=== PATIENT | female | born 1985 | race Caucasian/White ===

== ENCOUNTER 2023-01-09 18:12 | Emergency (ER) | payer OTHER, SELFPAY ==
[2023-01-09] VITALS (15 sets, daily range): BP systolic 121–139; BP diastolic 63–83; PULSE 78–92; RESP 11–26; TEMP 36.6; O2SAT 98–100
--- NOTE | 2023-01-09 18:15 | DI.RAD_ITS ---
Exam(s) XR FOREARM LT EXAM: XR FOREARM LT CLINICAL HISTORY: pain s/p fall. TECHNIQUE: 2D digital imaging was performed. COMPARISON: No exams were available for comparison FINDINGS: Two views Severely comminuted fracture of distal radius involvement of the radiocarpal joint. Dorsal displacem ent and dorsal angulation. Soft tissue swelling around the wrist. No obvious fracture of the ulna nor of the radius more proximally. IMPRESSION: Severely comminuted fracture of the distal radius. DATA REPOSITORY: RADIATION DOSE DELIVERED:
--- NOTE | 2023-01-09 18:15 | DI.RAD_ITS ---
Exam(s) XR WRIST LT COMPLETE EXAM: XR WRIST LT COMPLETE CLINICAL HISTORY: pain s/p fall. TECHNIQUE: 2D digital imaging was performed. COMPARISON: No exams were available for comparison FINDINGS: 3 views There is a severely comminuted and displaced fracture distal radius involves the radiocarpal joint. Also dorsal angulation. There is no obvious fracture of the ulna. No obvious scaphoid fracture. On the lateral view there is a small osteophytic density seen dorsally which may be an avulsion injur y off the triquetrum. IMPRESSION: Severely comminuted dorsally angulated fracture of distal radius. Also possible fracture of the triq uetrum. DATA REPOSITORY: RADIATION DOSE DELIVERED:
--- NOTE | 2023-01-09 18:28 | W.ED.GENAD ---
Discharge Plan Disposition Patient Disposition: Home Condition: Stable Discharge Details Clinical Impression: Fracture of left wrist Primary Care Provider: Anne,Local ED Provider: Leandra Boles Home Meds and New Rx's Prescriptions: New oxycodone 5 mg tablet 5 mg PO Q6H PRN (Reason: pain) Qty: 10 0RF Discharge Instructions Instructions: Wrist Fracture in Adults (ED), Closed Reduction (ED) Additional Instructions: Your wrist fracture was reduced by our orthopedist Dr. Vaughn in the emergency department. Call your local orthopedist in [place] tomorrow to schedule a follow-up appointment for reevaluation this week when you return to [place]. It has been recommended by Dr. Vaughn that you will likely require surgery of your left wrist fracture within the next 2 weeks. Rest, ice, and elevate the affected area as much as possible. Keep the sling on at all times. You may remove the sling to shower. Alternate tylenol and motrin as needed and directed for pain. A prescription for oxycodone has been sent electronically to the [facility] pharmacy. Take the oxycodone for pain not relieved with Tylenol or Motrin. Return immediately to the emergency department if you develop any worsening or new concerning symptoms. Referrals: Pantera Vaughn MD [ [facility] STAFF PHYSICIAN] - Discharge Data Discharge Date/Time-TO BE ENTERED AT DEPARTURE: 01/09/23 21:52 Discharge Physician: Leandra Boles Medical Decision Making <Gee Cooper MD - Last Filed: 01/09/23 19:37> 37 yo female with no chronic medical problems comes in with left wrist pain. She states about an hour ago she was walking when she slipped on ice falling on her left outstretch hand, she denies hitting her head or loc. She has a deformed left wrist, intact sensation and pulses. No tenderness in the shoulder, humerus or elbow. CAox4 without trauma to the head and no midline c spine pain. Likely fracture/dislocation of the left wirst, will obtain xrays xrays confirm wrist fx/dislocation. Consulted with Dr. Vaughn who will come in to assist with reduction. Pt consents to having reduction on procedural sedation Differential Diagnosis Differential Diagnosis: fracture, dislocation Imaging Data Radiologic Study: Attestation: I personally reviewed and interpreted this imaging study as follows: Imaging: X-Ray My impression: fracture on wrist xray Radiologic Study #2: Attestation: I personally reviewed and interpreted this imaging study as follows: Imaging: X-Ray My impression: wrist fracture on forearm xray <Leandra Boles, DO - Last Filed: 01/11/23 00:57> Dr. Cooper 37 yo female with no chronic medical problems comes in with left wrist pain. She states about an hour ago she was walking when she slipped on ice falling on her left outstretch hand, she denies hitting her head or loc. She has a deformed left wrist, intact sensation and pulses. No tenderness in the shoulder, humerus or elbow. CAox4 without trauma to the head and no midline c spine pain. Likely fracture/dislocation of the left wirst, will obtain xrays xrays confirm wrist fx/dislocation. Consulted with Dr. Vaughn who will come in to assist with reduction. Pt consents to having reduction on procedural sedation. Dr. Boles 1999 -- Please see Dr. Cooper's note for initial presentation, exam, and plan. Case endorsed to plan for conscious sedation and bedside closed reduction with Dr. Vaughn. Patient is a 37-year-old yqlq-exhi-voqfimas female diagnosed with left wrist fracture with deformity after mechanical fall onto left hand today. She denies any other injuries. She is visiting from [place] and returning Tuesday. She has a positive deformity to the left wrist but is otherwise neurovascularly intact. Conscious sedation performed at bedside by me and closed reduction performed by Dr. Vauhgn. Not able to achieve full sedation but pt otherwise tolerated this procedure well and was successfully reduced and splint applied. X-ray confirms significant improvement in bony alignment. She was given an xray disc to go. She was given oxycodone to go and a prescription sent electronically to [facility] pharmacy. Patient's sister is our field service tech Scott. Dr. Vaughn recommended she have surgery to improve the left wrist fracture within the next 2 weeks. She is advised to follow-up with orthopedics in [place] this week. Usual and customary return precautions given prior to discharge. Medical Records Medical records reviewed: Yes I reviewed the patient's medical records. Imaging Data Radiologic Study: Radiologist's impression: XR Left Wrist Exam date and time: 01/09/2023 7:10 PM Age: 37 years old Clinical indication: Injury or trauma; Other: Pain S/P fall; Injury date: 01/09/23 TECHNIQUE: Imaging protocol: Radiologic exam of the left wrist. Views: 3 or more views. COMPARISON: No relevant prior studies available. FINDINGS: Bones/joints: There is severely comminuted fracture of the distal radius with of large intraarticular component. There is displacement of the distal fracture fragments approximately 1/2 bone width dorsally. There is a possible fracture seen within the carpus at the dorsal aspect versus confluency of the silhouettes of the carpal bones. Consider follow-up films and/or CT for confirmation. Consider follow-up films and/or CT for confirmation. The proximal shaft of the radius is intact. The left ulna is intact. Soft tissues: There is deformation and soft tissue swelling at the left wrist. IMPRESSION: 1. ? There is severely comminuted fracture of the distal radius with of large intraarticular component. There is displacement of the distal fracture fragments approximately 1/2 bone width dorsally. 2. ? There is deformation and soft tissue swelling at the left wrist. 3. ? There is a possible fracture seen within the carpus at the dorsal aspect versus confluency of the silhouettes of the carpal bones. Consider follow-up films and/or CT for confirmation. XR Left Forearm Exam date and time: 01/09/2023 7:11 PM Age: 37 years old Clinical indication: Injury or trauma; Other: Pain S/P fall; Injury date: 01/09/23 TECHNIQUE: Imaging protocol: Radiologic exam of the left forearm. Views: 2 views. COMPARISON: CR XR WRIST LT COMPLETE 01/09/2023 7:10 PM FINDINGS: Bones/joints: There is severely comminuted fracture of the distal radius with of large inter articular component. There is displacement of the distal fracture fragments approximately 1/2 bone width dorsally. The proximal shaft of the radius is intact. The left ulna is intact. Soft tissues: There is deformation and soft tissue swelling at the left wrist. IMPRESSION: 1. ? There is severely comminuted fracture of the distal radius with of large inter articular component. There is displacement of the distal fracture fragments approximately 1/2 bone width dorsally. 2. ? There is deformation and soft tissue swelling at the left wrist. Radiologic Study #2: Radiologist's impression: XR Left Wrist - POST REDUCTION Exam date and time: 01/09/2023 8:30 PM Age: 37 years old Clinical indication: Other: Post reduction TECHNIQUE: Imaging protocol: Radiologic exam of the left wrist. Views: 3 or more views. COMPARISON: CR XR WRIST LT COMPLETE 01/09/2023 7:10 PM FINDINGS: Tubes, catheters and devices: External fiberglass splint limits bony and soft-tissue detail. Bones/joints: There has been closed reduction of the left radial fracture. The osseous structures show remarkable improvement in alignment and position when compared with the pre reduction films. Ulnar styloid fracture is now apparent. Soft tissues: There is soft tissue swelling present. IMPRESSION: 1. ? There has been closed reduction of the left radial fracture. The osseous structures show remarkable improvement in alignment and position when compared with the pre reduction films. 2. ? Ulnar styloid fracture is now apparent. 3. ? There is soft tissue swelling present. HPI <Gee Cooper MD - Last Filed: 01/09/23 19:37> General Mode of arrival: ambulatory. Date/Time Provider Initiated Documentation: 01/09/23 18:13. Limitations to Documentation: no limitations. Information obtained by: patient. History of Present Illness 37 year old F presents to the emergency department with the chief complaint of left wrist pain, described as moderate, Patient started experiencing this hour(s) (1) and it has been constant. No relieving factors improve symptom(s), No exacerbating factors reported . Patient notes no other symptoms.. Patient did receive the following treatments prior to arrival, none Related Data Home Medications Medication Instructions Recorded Confirmed oxycodone 5 mg tablet 5 mg PO Q6H PRN pain #10 tabs 01/09/23 Previous Rx's Medication Instructions Recorded oxycodone 5 mg tablet 5 mg PO Q6H PRN pain #10 tabs 01/09/23 Allergies Allergy/AdvReac Type Severity Reaction Status Date / Time Penicillins Allergy Skin Rash Unverified 01/09/23 18:23 General Stated Complaint: Orthopedic NIEVES: 4 Review of Systems <Gee Cooper MD - Last Filed: 01/09/23 19:37> All systems reviewed & are unremarkable except as noted in HPI and below Constitutional Constitutional: Denies chills, Denies fever(s) and Denies weakness Cardiovascular Cardiovascular: Denies chest pain and Denies dyspnea Respiratory Respiratory: Denies cough and Denies dyspnea Gastrointestinal Gastrointestinal: Denies abdominal pain, Denies nausea and Denies vomiting Musculoskeletal Musculoskeletal: Denies joint swelling Integumentary/Breasts Skin/Breast: Denies rash Neurologic Neurologic: Denies weakness Psychiatric Psychiatric: Denies depression PFSH <Gee Cooper MD - Last Filed: 01/09/23 19:37> All Active Problems Fracture of left wrist (Acute) Medical History No significant past medical history Surgical History H/O wisdom tooth extraction Social History Smoking/Tobacco Use Status: Never Smoking risk assessment performed?: Yes Alcohol Intake: current Alcohol Intake frequency: holidays/special occasions only Drug use: Never Exam <Gee Cooper MD - Last Filed: 01/09/23 19:37> Const Orientation: alert and awake HENMT Head: normal to inspection Ears: external ears normal and TM's normal bilaterally General nose exam: external nose normal Mouth: oral mucosae normal Eyes General: appearance normal, both eyes and all related structures Neck Neck: normal visual inspection Resp Effort & Inspection: normal respiratory effort Cardio Rate: regular rate GI Palpation: soft and nontender Skin General skin exam: no rashes or lesions noted Neuro General: patient alert and patient awake Extrem General: capillary refill normal Course <Gee Cooper MD - Last Filed: 01/09/23 19:37> Vital Signs Vital signs: Vital Signs Temperature 36.6 C 01/09/23 18:18 Pulse 78 01/09/23 18:18 Respiratory Rate 16 01/09/23 18:18 Blood Pressure 134/83 01/09/23 18:18 Pulse Oximetry 100 01/09/23 18:18 Temperature 36.6 C 01/09/23 18:18 Temperature Source Tympanic 01/09/23 18:18 Pulse 78 01/09/23 18:18 Respiratory Rate 16 01/09/23 18:18 Blood Pressure 134/83 01/09/23 18:18 Blood Pressure Position Sitting 01/09/23 18:18 Pulse Oximetry 100 01/09/23 18:18 Oxygen Delivery Method Room Air 01/09/23 18:18 Oxygen Flow Rate 0 01/09/23 18:18 Pain Level 8 01/09/23 18:18 <Leandra Boles DO - Last Filed: 01/11/23 00:57> Procedural Sedation Indication: fracture/dislocation reduction Preparation: ekg monitor tech applied, pulse oximeter, capnometry used, supplemental O2 applied, reversal agents at bedside, suction/airway equipment at bedside and IV secured IV Propofol dose (mg): 180 Patient Tolerated Procedure: well Complications: none Additional Comments: A total of 200 mg of propofol ordered and prepared at bedside prior to procedure. Patient was given a total of 180 mg of propofol during procedure. 20 mg of the 200 mg total were inadvertently spilled during the procedure. Unable to achieve full sedation but pt otherwise tolerated procedure well and reduction successful and splint applied. Sign Out <Gee Cooper MD - Last Filed: 01/09/23 19:37> Sign Out Data: Sign Out Comment: slipped on ice, left wrist fx/dislocation. Dr. Vaughn consulted and plans to reduce under procedural sedation Last updated by Gee Cooper MD at 01/09/23 19:43
[2023-01-09] MEDS: Ketorolac 15 MG/ML VIAL IVP (18:52)
--- NOTE | 2023-01-09 19:15 | DI.RAD_ITS ---
Exam(s) XR FLOURO OR C-ARM <1 HR EXAM: XR FLOURO OR C-ARM <1 HR CLINICAL HISTORY: fracture. TECHNIQUE: 2D digital imaging was performed. COMPARISON: No exams were available for comparison FINDINGS: Fluoroscopy was provided during close reduction of distal radius fracture. Submitted images significant improvement alignment of fracture fragments. Total fluoroscopy time was 18 seconds. IMPRESSION: Radiation exposure index/cumulative dose: Ka,r= 0.0986mGy DATA REPOSITORY: RADIATION DOSE DELIVERED:
--- NOTE | 2023-01-09 19:44 | DI.VRAD_ITS ---
PROCEDURE INFORMATION: Exam: XR Left Forearm Exam date and time: 01/09/2023 7:11 PM Age: 37 years old Clinical indication: Injury or trauma; Other: Pain S/P fall; Injury date: 01/09/23 TECHNIQUE: Imaging protocol: Radiologic exam of the left forearm. Views: 2 views. COMPARISON: CR XR WRIST LT COMPLETE 01/09/2023 7:10 PM FINDINGS: Bones/joints: There is severely comminuted fracture of the distal radius with of large inter articular component. There is displacement of the distal fracture fragments approximately 1/2 bone width dorsally. The proximal shaft of the radius is intact. The left ulna is intact. Soft tissues: There is deformation and soft tissue swelling at the left wrist. IMPRESSION: 1. There is severely comminuted fracture of the distal radius with of large inter articular component. There is displacement of the distal fracture fragments approximately 1/2 bone width dorsally. 2. There is deformation and soft tissue swelling at the left wrist. Dictated and Authenticated by: Lucho Flores MD. Ordering:PATRICK Flynn MD
--- NOTE | 2023-01-09 19:48 | DI.VRAD_ITS ---
PROCEDURE INFORMATION: Exam: XR Left Wrist Exam date and time: 01/09/2023 7:10 PM Age: 37 years old Clinical indication: Injury or trauma; Other: Pain S/P fall; Injury date: 01/09/23 TECHNIQUE: Imaging protocol: Radiologic exam of the left wrist. Views: 3 or more views. COMPARISON: No relevant prior studies available. FINDINGS: Bones/joints: There is severely comminuted fracture of the distal radius with of large intraarticular component. There is displacement of the distal fracture fragments approximately 1/2 bone width dorsally. There is a possible fracture seen within the carpus at the dorsal aspect versus confluency of the silhouettes of the carpal bones. Consider follow-up films and/or CT for confirmation. Consider follow-up films and/or CT for confirmation. The proximal shaft of the radius is intact. The left ulna is intact. Soft tissues: There is deformation and soft tissue swelling at the left wrist. IMPRESSION: 1. There is severely comminuted fracture of the distal radius with of large intraarticular component. There is displacement of the distal fracture fragments approximately 1/2 bone width dorsally. 2. There is deformation and soft tissue swelling at the left wrist. 3. There is a possible fracture seen within the carpus at the dorsal aspect versus confluency of the silhouettes of the carpal bones. Consider follow-up films and/or CT for confirmation. Dictated and Authenticated by: Lucho Flores MD. Ordering:PATRICK Flynn MD
--- NOTE | 2023-01-09 19:52 | NUR.NOTE ---
Addendum entered by Tyler Christie RN 01/09/23 20:07: Ortho, Respiratory, and Radiology at bedside. Original Note: Nursing Note:Pt signed consent form for sedation and reduction with MD at bedside. Pt moving to room for cardiac and respiratory monitoring during sedation and reduction procedure.
--- NOTE | 2023-01-09 20:24 | NUR.NOTE ---
Addendum entered by Tyler Christie RN 01/09/23 20:51: Ending vitals HR 87 SPO2 97% Room Air Resp Rate 20 CO2 32 BP 121/70 All medications given IV by Dr. Boles. Total Propofol given 180mg. Original Note: Nursing Note ER MD, Ortho , Respiratory, and ER nurse ar bedside. 2023:time out, Propofol 60mg 2024:Propofol 40mg 2027:Propofol 40mg 2028:Propofol 40mg 2035:Reduction L wrist completed and splinted by Jackie OLIVER. 2037:Pt awake and talking 2039:Procedure completed, end of procedure.
--- NOTE | 2023-01-09 20:30 | DI.RAD_ITS ---
Exam(s) XR WRIST LT COMPLETE EXAM: XR WRIST LT COMPLETE CLINICAL HISTORY: POST-REDUCTION. TECHNIQUE: 2D digital imaging was performed. COMPARISON: No exams were available for comparison FINDINGS: Three in splint views Post reduction images reveal close reduction of distal radius fracture with significant improvement i n alignment position when compared to the pre reduction images. There is an ulnar styloid fracture now evident. Scaphoid intact. Scapholunate distance normal. IMPRESSION: Close reduction distal radius fracture with significant improvement in alignment position the fractur e fragments. Ulnar styloid fracture now evident. DATA REPOSITORY: RADIATION DOSE DELIVERED:
--- NOTE | 2023-01-09 21:14 | DI.VRAD_ITS ---
PROCEDURE INFORMATION: Exam: XR Left Wrist Exam date and time: 01/09/2023 8:30 PM Age: 37 years old Clinical indication: Other: Post reduction TECHNIQUE: Imaging protocol: Radiologic exam of the left wrist. Views: 3 or more views. COMPARISON: CR XR WRIST LT COMPLETE 01/09/2023 7:10 PM FINDINGS: Tubes, catheters and devices: External fiberglass splint limits bony and soft-tissue detail. Bones/joints: There has been closed reduction of the left radial fracture. The osseous structures show remarkable improvement in alignment and position when compared with the pre reduction films. Ulnar styloid fracture is now apparent. Soft tissues: There is soft tissue swelling present. IMPRESSION: 1. There has been closed reduction of the left radial fracture. The osseous structures show remarkable improvement in alignment and position when compared with the pre reduction films. 2. Ulnar styloid fracture is now apparent. 3. There is soft tissue swelling present. Dictated and Authenticated by: Lucho Flores MD. Ordering:ONELIA Mobley MD
--- NOTE | 2023-01-09 21:14 | W.ORTHOCONSU ---
Date of service: 01/09/23 Time of Service: 20:30 History of Present Illness History of Present Illness Chief Complaint: Left Wrist Fracture Narrative: Eliz is a [id number]-aimd-oswwansq active 37-year-old who slipped on the ice today and fell onto an outstretched left hand. She had notable pain and deformity. She was seen in the emergency department and diagnosed with a comminuted and significantly displaced distal radius fracture on the left side. I was called in consultation. She reports some subjective dysesthesias although no numbness. These are primarily over the palmar aspect of the hand. She does have swelling. No break in the skin. No pain in the elbow or upper arm. She is currently visiting from [place] with her family. 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 There is significant comminution and unfortunately a small piece is entrapped within the distal radius likely preventing anatomic reduction. However, the reduction is more than acceptable and at this point is safe to be left and followed closely. I would recommend surgical fixation. However, this should be treated locally since she is planned to go back to [place] on Tuesday. I am happy to take care of it here although does make most sense to be done back in her home region. She tolerated the procedure well and is now in a splint. I did review risk of splint complication including increasing numbness or tingling or increasing pain. Discharge instructions were amended. I recommend she follow-up with local orthopedic care in [place] within the week. Review of Systems All systems reviewed & are unremarkable except as noted in HPI and below PFSH All Active Problems Fracture of left wrist (Acute) Medical History No significant past medical history Surgical History H/O wisdom tooth extraction Social History Smoking/Tobacco Use Status: Never Smoking risk assessment performed?: Yes Alcohol Intake: current Alcohol Intake frequency: holidays/special occasions only Drug use: Never Exam Narrative Exam Narrative: Evaluation of the left hand shows an obvious deformity. There is a dorsal displacement with notable swelling about the left wrist. Radial pulses difficult to appreciate the fingers are warm and well-perfused with capillary refill less than 2 seconds. Sensation intact to light touch of the median, radial, ulnar nerve. EPL and FPL is intact as well as index finger flexion extension. Abduction is limited by pain. No pain on palpation of the proximal forearm or elbow. . Results Last Vital Signs Temp 36.6 C 01/09/23 18:18 Pulse 81 01/09/23 20:49 Resp 20 01/09/23 20:50 BP 124/70 01/09/23 20:49 Pulse Ox 98 01/09/23 20:50 Imaging Imaging Studies: X-ray of the left wrist and forearm shows a significantly comminuted and 100% dorsally displaced distal radius fracture with also ulna fracture. It is difficult to appreciate but I do not see any clear articular involvement. There is a small fracture of the ulnar styloid. There are multiple pieces dorsally. Postreduction x-rays show significant improvement of the alignment. There appears to be an entrapped cortical fragment from the volar cortex. Procedures Orthopedic Fracture Reduction Left Wrist: Time out performed: Yes Side: left Fracture reduction location: radius Analgesia: procedural sedation and hematoma block Technique: direct manipulation Post-reduction x-rays demonstrate: acceptable reduction Post-reduction neuro exam: intact Post-reduction vascular exam: intact Splint applied: Yes Patient tolerated procedure: well Additional comments: Hematoma block was administered using 10 cc of 0.5% bupivacaine. Conscious sedation was administered by Dr. Boles. Unfortunately, she never truly obtained a deep state was able to tolerated the reduction. I was able to improve the reduction significantly. However, there appeared to be entrapped fragments on the x-ray preventing complete reduction. Nevertheless, the hand was on top of the radius and the AP was anatomic. A sandwich type splint using fiberglass was placed and reduction maintained.
[2023-01-09] MEDS: Propofol 200 MG/20 ML VIAL IVP (21:26)
--- OUTSIDE RECORDS SUMMARY | 2023-01-09 21:49 | XMS_ITS | Summary of Care ---
Author Name Unknown Organization [facility] Address [address], [facility] [address] [place] [address]- Encounter BMN [id number] Date(s): 10/23/19 - 10/29/19 [facility] [address] [facility] [address] [place], [place] [address] Attending Physician: MARK CONTRERAS Referring Physician: Estelita López APRN Problem List Condition Effective Dates Status Health Status Inform ant Gestational diabetes(Confirmed) Active Gestational hypertension(Confirmed) Active Polyhydramnios(Confirmed) Active Allergies, Adverse Reactions, Alerts Substance Reaction Severity Status penicillin 1 AN INFANT RASH Unsure of reaction Active 1Originally documented as PENICILLIN Immunizations Given and Recorded Vaccine Date Status Refusal Reason tetanus/diphth/pertuss,acel (Tdap) inj 01/22/19 Gi sunshine tetanus/diphth/pertuss,acel (Tdap) inj 1 10/24/07 Given human papillomavirus vaccine 2 02/01/12 Given 1Result Comment: Done Elsewhere. VIS Date: 11/16/11 2Result Comment: Done Elsewhere. VIS Date: 02/23/11 Social History Social History Type Response Smoking Status Never a smoker Assessment and Plan Future Appointments ??
== END 2023-01-09 21:52 | disposition home or self-care (01) ==
PROVIDERS: Emergency Provider Physician Assistant
DX: S52.502A Unspecified fracture of the lower end of left radius, initial encounter for closed fracture (principal); S52.612A Displaced fracture of left ulna styloid process, initial encounter for closed fracture; W00.0XXA Fall on same level due to ice and snow, initial encounter; Y93.01 Activity, walking, marching and hiking
CPT/HCPCS: 76000; 81025; 96374; 96375; 99284; 25605; 73090; 73110; J1885; J2704